=== PATIENT | female | born 1960 | race Caucasian/White ===

== ENCOUNTER 2017-03-14 16:28 | Inpatient (IN) | payer OTHER, BC ==
[~2017-03-14] VITALS: Ht 162.6 cm; Wt 68.5 kg
[~2017-03-14 16:28] MED LIST: DEXAMETHASONE SOD PHOS 4 MG/ML VIAL IV ONE; GLYCOPYRROLATE 1 MG/5 ML SYRINGE IV PUSH ONE; LACTATED RINGER'S 1000 ML INJ 2,000 ML IV ONE; LIDOCAINE HCL 1% PF 5 ML AMPULE OTHER ONE; MORPHINE SULFATE 4 MG/ML INJ IV ONE; NEOSTIGMINE 3 MG/3 ML SYR IV ONE; ONDANSETRON HCL 4 MG/2 ML VIAL IV PUSH ONE; PROPOFOL 200 MG/20 ML AMP IV ONE; ROCURONIUM INJ 50 MG/5 ML SYRINGE IV PUSH ONE; SUCCINYLCHOLINE CHLORIDE 100 MG/5 ML SYRINGE IV PUSH ONE
[2017-03-14] MEDS ORDERED: GENTAMICIN 80 MG PREMIX 100 ML ONE (16:32)
[2017-03-14] MEDS ORDERED: MORPHINE SULFATE 8 MG/ML INJ ONE (16:32)
[2017-03-14] MEDS ORDERED: DIPHTH/TETANUS/ACEL PERTUSSIS (BOOSTER) 0.5 ML VIAL/PFS IM ONE (16:32)
[2017-03-14] MEDS ORDERED: ONDANSETRON HCL 4 MG/2 ML VIAL ONE ×2 (16:32→17:06)
[2017-03-14 16:43] VITALS: O2SAT 100
[2017-03-14 16:51] LABS: AUTOMATED NEUTROPHIL # 11.3 TH/MM3 (1.8-7.7); BASOPHIL # 0.1 TH/MM3 (0-0.2); BASOPHIL % 0.5 % (0.0-2.0); EOSINOPHIL # 0.3 TH/MM3 (0-0.4); EOSINOPHIL % 1.5 % (0.0-4.0); HEMATOCRIT 40.3 % (35.0-46.0); HEMO FLAGS DIFF FINAL; I-STAT POTASSIUM 3.2 MMOL/L (3.5-4.9); LYMPHOCYTE # 4.2 TH/MM3 (1.0-4.8); MEAN CELL VOLUME 90.4 FL (80.0-100.0); MEAN CORPUSCULAR HGB CONC 33.2 % (32.0-36.0); MONO % 5.6 % (0.0-8.0); NEUT % 67.4 % (16.0-70.0); PLATELET COUNT 370 TH/MM3 (150-450); RED BLOOD COUNT 4.45 MIL/MM3 (4.00-5.30); RED CELL DISTRIBUTION WIDTH 12.9 % (11.6-17.2); WHITE BLOOD COUNT 16.7 TH/MM3 (4.0-11.0)
[2017-03-14] MEDS ORDERED: diphenhydrAMINE HCL 50 MG/ML VIAL ONE (16:53)
[2017-03-14] MEDS ORDERED: methylPREDNISolone SOD SUCC 125 MG/2 ML VIAL ONE (16:54)
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
[2017-03-14 17:03] LABS: APTT (PATIENT) 20.8 SEC (24.3-30.1); INTERNATIONAL NORMALIZED RATIO 0.9 RATIO; PROTHROMBIN TIME - PATIENT 10.4 SEC (9.8-11.6)
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
[2017-03-14 17:13] VITALS: BP 155/89; PULSE 85; RESP 20; O2SAT 100
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
--- NOTE | 2017-03-14 17:14 | RADRPT ---
EXAM DATE/TIME: 03/14/2017 16:20 [facility] COMPARISON: No previous studies available for comparison. INDICATIONS : [facility] alert. [facility] MEDICAL HISTORY : None. SURGICAL HISTORY : None. ENCOUNTER: Initial ACUITY: 1 day PAIN SCORE: Non-responsive. LOCATION: Right Ankle FINDINGS: Two view examination was performed of the right ankle. There is a nondisplaced fracture involving the lateral malleolus. There is a fracture involving the medial malleolus. There is irregularity involvi ng the medial portion of the talus bone. There is good alignment at the mortise joint. There is a fra cture involving the base of the fifth metatarsal. No joint dislocation is seen. There is diffuse soft tissue swelling. CONCLUSION: 1. Fractures involving the lateral medial malleoli. 2. Possible fracture involving the medial aspect of the talus 3. Fracture involving the base of the metatarsal 4. Diffuse soft tissue swelling Fredrick Wall MD on March 14, 2017 at 17:11 Board Certified Radiologist. This report was verified electronically.
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
[2017-03-14] MEDS ORDERED: LIDOCAINE 1%/EPINEPHrine 1:100,000 SOLN 20 ML VIAL INFIL ONE (17:30)
[2017-03-14] MEDS ORDERED: SODIUM CHLOR 0.9% 1000 ML INJ 1,000 ML IV SCH (17:33)
[2017-03-14] MEDS ORDERED: PANTOPRAZOLE SODIUM 40 MG VIAL IVP SCH (17:45)
[2017-03-14] MEDS ORDERED: SODIUM CHLORIDE 0.9% FLUSH 10 ML FLUSH IV FLUSH PRN ×2 (17:45→20:45)
[2017-03-14] MEDS ORDERED: ACETAMINOPHEN/HYDROcodone 325 MG/5 MG TAB PO PRN ×2 (17:45)
[2017-03-14] MEDS ORDERED: ONDANSETRON HCL 4 MG/2 ML VIAL IV PUSH PRN (17:45)
[2017-03-14] MEDS ORDERED: MORPHINE SULFATE 4 MG/ML INJ IV PUSH PRN (17:45)
[2017-03-14] MEDS ORDERED: ENALAPRILAT 1.25 MG/ML VIAL IV PUSH PRN (17:45)
[2017-03-14] MEDS ORDERED: MAGNESIUM HYDROXIDE SUSP 30 ML CUP PO PRN ×2 (17:45→20:45)
[2017-03-14] MEDS ORDERED: LIDOCAINE HCL 1% 50 ML VIAL INFIL ONE (17:45)
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
[2017-03-14] MEDS ORDERED: GENTAMICIN INJ 80 MG in SODIUM CHLORIDE 0.9% INJ 100 ML IV ONE (18:15)
[2017-03-14] MEDS ORDERED: ceFAZolin 2 GM PREMIX 50 ML IV SCH (18:15)
[2017-03-14 18:22] VITALS: BP 167/94
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
[2017-03-14] MEDS ORDERED: GENTAMICIN SULFATE 80 MG/2 ML VIAL ONE (18:31)
[2017-03-14] MEDS ORDERED: ceFAZolin INJ 1,000 MG VIAL ONE (18:31)
[2017-03-14] MEDS ORDERED: GENTAMICIN 80 MG PREMIX 100 ML IV PRN (18:45)
[2017-03-14] MEDS ORDERED: ACETAMINOPHEN 1000 MG/100 ML 100 ML IV ONE (19:15)
--- NOTE | 2017-03-14 20:36 | PD.OP ---
cc: Andrez Plascencia MD Operative Report Date of Surgery: Mar 14, 2017 Preoperative Diagnosis: (1) Open femur fracture, right (2) Open wound of forearm Postoperative Diagnosis: (1) Open displaced supracondylar fracture with intracondylar extension of lower end of left femur, type III (2) Open wound of forearm Procedure: 1.Irrigation and debridement right open distal femur fracture with external fixation 2 Irrigation and debridement with partial closure right forearm laceration Implants: Synthes Anesthesia: Gen. Surgeon: Andrez Plascencia Ink Technician(s): Paty Dominguez PA-C ([place]) The surgical procedure was assisted by my physician's research assistant. Her presence was necessary throughout the case for manipulation and positioning of the surgical extremity. My PA was assisting me throughout the duration of this procedure. The skill set of the physician research assistant was medically necessary to complete this procedure. During the surgical case the operating room surgical technologist was working at the back table and the physician research assistant was directly assisting me. Operation and Findings: The patient was taken to the operative suite and after undergoing an adequate level of general anesthesia was kept supine on the operative table. Preoperative antibiotics consisted of Ancef 2 g IV and gentamicin 80 mg IV. The right lower extremity splint was removed. The patient had a 2 cm laceration over the medial aspect of the distal thigh with venous bleeding. There was an obvious instability and deformity. There were abrasions over the anterior aspect of the lower leg and moderate swelling of the foot and ankle. The right upper extremity dressing was removed and there was a large full- thickness skin flap over the radial aspect of the forearm. The right upper and lower extremity is were then prepped and draped in usual sterile fashion with Hibiclens. Attention was first focused on the femur fracture. The open wound was extended proximally and distally. There was violation the muscular fascia and the VMO. It easily communicate with the fracture site. The wound was thoroughly irrigated with antibiotic irrigant and pulse lavage. Utilizing fluoroscopic guidance 2 percutaneous incisions were made over the anterior aspect of the mid thigh. Drill holes were made and Schanz pins placed in a parallel fashion. 2 additional pins were placed into the tibia. The external fixation frame was assembled. The fracture was held somewhat reduced with traction. The bolts were then tightened. The position was checked in both the AP and lateral planes with the C-arm. The wound was again thoroughly irrigated with pulse lavage and loosely closed with 2-0 nylon. Sterile dressings were applied. Patient was placed into a lower extremity splint for immobilization of her foot and ankle fractures. Attention was then focused on the forearm which was thoroughly irrigated with pulse lavage. Dr. Bermudez was present for evaluation as plastic surgery would be consulted. He recommended loose coverage of the exposed area but no need for VAC application. This was completed with 2-0 nylon. Sterile dressings were then applied. The patient was awakened, transferred to hospital bed and taken to the recovery room in stable condition. Estimated blood loss: 100 cc Complications: None Andrez Plascencia MD Mar 14, 2017 20:36
[2017-03-14] MEDS ORDERED: ACETAMINOPHEN 325 MG TAB PO PRN (20:45)
[2017-03-14] MEDS ORDERED: NALOXONE HCL 0.4 MG/ML AMP IV PUSH PRN (20:45)
[2017-03-14] MEDS ORDERED: MISCELLANEOUS PHARMACY INFORMATION XX ONE (20:45)
[2017-03-14] MEDS ORDERED: oxyCODONE/ACETAMINOPHEN 5 MG/325 MG TAB PO PRN (20:45)
[2017-03-14] MEDS ORDERED: LACTULOSE SYRUP 20 GM/30 ML CUP PO PRN (20:45)
[2017-03-14] MEDS ORDERED: diphenhydrAMINE HCL 25 MG CAP PO PRN (20:45)
[2017-03-14] MEDS ORDERED: MISCELLANEOUS NURSING INFORMATION XX PRN (20:45)
[2017-03-14] MEDS ORDERED: MORPHINE SULFATE 30 MG/30 ML PCA IV SCH (20:45)
[2017-03-14] MEDS ORDERED: SENNOSIDES 8.6 MG TAB PO PRN (20:45)
[2017-03-14] MEDS ORDERED: Post-op Orders (for Pharmacy) MISC XX ONE (20:45)
[2017-03-14] MEDS ORDERED: BISACODYL 10 MG SUPP RECTAL PRN (20:45)
[2017-03-14] MEDS ORDERED: DOCUSATE SODIUM 100 MG CAP PO SCH (21:00)
[2017-03-14] MEDS: DEXT 5%-NACL 0.45% 1000 ML INJ 1,000 ML IV SCH ×2 (21:00→22:15)
[2017-03-14] MEDS: SODIUM CHLORIDE 0.9% FLUSH 10 ML FLUSH IV FLUSH SCH (21:00)
[2017-03-14] MEDS ORDERED: DOCUSATE SODIUM 50 MG/SENNA 8.6 MG TAB PO SCH (21:00)
[2017-03-14] MEDS ORDERED: DO NOT ADM ANY ANTICOAGULANT DRUGS PRN (21:10)
[2017-03-14] MEDS ORDERED: *ONDANSETRON 4 MG VIAL PERIprocedural Use ONLY ONE (21:13)
[2017-03-14] MEDS: PCA - TOTAL MG MORPHINE DELIVERED PER SHIFT SCH (22:00)
[2017-03-14 22:10] VITALS: BP 182/97; PULSE 59; RESP 18; TEMP 96.8; O2SAT 100
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
[2017-03-15] VITALS (8 sets, daily range): BP systolic 116–170; BP diastolic 71–96; PULSE 76–90; RESP 16–19; TEMP 97.3–99.3; O2SAT 98–100
[2017-03-15] MEDS: GENTAMICIN 80 MG PREMIX 100 ML IV SCH ×4 (00:15→23:58)
[2017-03-15] MEDS: ceFAZolin 2 GM PREMIX 50 ML IV SCH ×3 (02:26→17:59)
[2017-03-15] MEDS: ONDANSETRON HCL 4 MG/2 ML VIAL IVP PRN ×2 (02:51→12:45)
[2017-03-15 05:36] LABS: AUTOMATED NEUTROPHIL # 6.4 TH/MM3 (1.8-7.7); BASOPHIL % 0.2 % (0.0-2.0); HEMATOCRIT 31.2 % (35.0-46.0); HEMO FLAGS DIFF FINAL; LYMPH % 9.5 % (9.0-44.0); LYMPHOCYTE # 0.8 TH/MM3 (1.0-4.8); MEAN CORPUSCULAR HEMOGLOBIN 30.9 PG (27.0-34.0); MEAN CORPUSCULAR HGB CONC 33.9 % (32.0-36.0); NEUT % 79.3 % (16.0-70.0); PLATELET COUNT 257 TH/MM3 (150-450); RED BLOOD COUNT 3.43 MIL/MM3 (4.00-5.30); WHITE BLOOD COUNT 8.1 TH/MM3 (4.0-11.0)
[2017-03-15] MEDS: PCA - TOTAL MG MORPHINE DELIVERED PER SHIFT SCH ×3 (06:00→21:06)
[2017-03-15 06:34] LABS: BICARBONATE 23.1 MEQ/L (21.0-32.0); CALCIUM-PROTEIN CORRECTED 7.9 MG/DL (8.5-10.1); TOTAL BILIRUBIN ADULT 0.4 MG/DL (0.2-1.0)
[2017-03-15] MEDS: FAMOTIDINE 20 MG TAB PO SCH ×2 (08:37→19:54)
[2017-03-15] MEDS: MULTIVITAMINS/MINERALS THERAPEUTIC TAB PO SCH (08:37)
[2017-03-15] MEDS: DOCUSATE SODIUM 50 MG/SENNA 8.6 MG TAB PO SCH ×2 (08:38→19:54)
[2017-03-15] MEDS: SODIUM CHLORIDE 0.9% FLUSH 10 ML FLUSH IV FLUSH SCH ×2 (08:40→19:55)
[2017-03-15] MEDS: POLYETHYLENE GLYCOL 17 GM PKG PO SCH (08:40)
[2017-03-15] MEDS: BACITRACIN TOP OINT 15 GM TUBE TOPICAL SCH ×2 (08:41→19:55)
--- NOTE | 2017-03-15 11:38 | PD.ORT.PN ---
Subjective Post Op Day #: 1 Pain Scale: 4 Subjective Remarks The patient is awake and alert and answers questions appropriate really. Family is at the bedside. Her pain is well-controlled. She has no other specific complaint. Objective Vitals Vital Signs Date Time Temp Pulse Resp B/P (MAP) Pulse Ox O2 Delivery O2 Flow Rate FiO2 03/15/17 10:54 99 21 03/15/17 08:00 98.3 81 18 142/81 (101) 99 03/15/17 06:00 17 03/15/17 04:00 97.3 76 16 116/71 (86) 100 03/15/17 00:00 97.8 76 18 153/85 (107) 100 03/14/17 23:25 16 03/14/17 22:22 95 Nasal Cannula 2.00 03/14/17 22:10 96.8 59 18 182/97 (125) 100 03/14/17 21:45 98.1 88 14 149/87 (107) 100 Nasal Cannula 2 03/14/17 21:30 70 18 184/86 (118) 100 Nasal Cannula 2 03/14/17 21:15 72 18 169/87 (114) 100 Nasal Cannula 2 03/14/17 21:10 97.6 78 20 147/84 (105) 99 Nasal Cannula 2 03/14/17 18:22 76 17 167/94 (118) 98 03/14/17 17:13 85 20 155/89 (111) 100 Nasal Cannula 2.00 03/14/17 16:43 100 Nasal Cannula 2.00 03/14/17 16:43 100 2.00 I/O 03/14/17 03/14/17 03/14/17 03/15/17 03/15/17 03/15/17 07:00 15:00 23:00 07:00 15:00 23:00 Intake Total 2400 ml 890 ml Output Total 950 ml 1050 ml Balance 1450 ml -160 ml Intake Oral 240 ml IV Total 200 ml 650 ml Other 2200 ml Output Urine Total 900 ml 1050 ml Estimated Blood Loss 50 ml # Bowel Movements 0 Result Diagram: 03/15/17 0458 03/15/17 0458 Other Results Laboratory Tests Test 03/14/17 16:29 Prothromb Time International Ratio 0.9 RATIO Prothrombin Time 10.4 SEC (9.8-11.6) Imaging Last 48 hours Impressions Pelvis X-Ray 03/14/17 1630 Signed Impressions: Service Date/Time: Tuesday, March 14, 2017 16:20 - CONCLUSION: No bony fracture or joint dislocation. Fredrick Wall MD Head CT 03/14/17 1630 Signed Impressions: Service Date/Time: Tuesday, March 14, 2017 16:40 - CONCLUSION: Normal examination for a patient of this age. Fredrick Wall MD Chest X-Ray 03/14/17 1630 Signed Impressions: Service Date/Time: Tuesday, March 14, 2017 16:20 - CONCLUSION: No acute disease. Fredrick Wall MD Chest CT 03/14/17 1630 Signed Impressions: Service Date/Time: Tuesday, March 14, 2017 16:53 - CONCLUSION: Normal examination for a patient of this age. Fredrick Wall MD Cervical Spine CT 03/14/17 1630 Signed Impressions: Service Date/Time: Tuesday, March 14, 2017 16:42 - CONCLUSION: 1. No acute bony fracture. 2. Primary bony degenerative changes, disc degeneration and disc space narrowing from C3-C7. Fredrick Wall MD Abdomen/Pelvis CT 03/14/17 1630 Signed Impressions: Service Date/Time: Tuesday, March 14, 2017 16:49 - CONCLUSION: No acute pathology. Fredrick Wall MD Tibia/Fibula X-Ray 03/14/17 0000 Signed Impressions: Service Date/Time: Tuesday, March 14, 2017 16:20 - CONCLUSION: Fracture involving the base the fifth metatarsal. Fredrick Wall MD Radius/Ulna X-Ray 03/14/17 0000 Signed Impressions: Service Date/Time: Tuesday, March 14, 2017 16:20 - CONCLUSION: Fracture involving the base of the fifth metacarpal. Fredrick Wall MD Hand X-Ray 03/14/17 0000 Signed Impressions: Service Date/Time: Tuesday, March 14, 2017 17:30 - CONCLUSION: Oblique fracture through the base of the fifth metacarpal. Fredrick Wall MD Hand X-Ray 03/14/17 0000 Signed Impressions: Service Date/Time: Tuesday, March 14, 2017 16:20 - CONCLUSION: Oblique fracture through the base of the fifth metacarpal. Fredrick Wall MD Foot X-Ray 03/14/17 0000 Signed Impressions: Service Date/Time: Tuesday, March 14, 2017 21:33 - CONCLUSION: Fracture non-distracted and nondisplaced base of the fifth metatarsal Michael Gunn MD Femur X-Ray 03/14/17 0000 Signed Impressions: Service Date/Time: Tuesday, March 14, 2017 19:58 - CONCLUSION: Status post fixation. Rudi Sood MD Femur X-Ray 03/14/17 0000 Signed Impressions: Service Date/Time: Tuesday, March 14, 2017 16:20 - CONCLUSION: Severely comminuted fracture involving the distal femur. Fredrick Wall MD Ankle X-Ray 03/14/17 0000 Signed Impressions: Service Date/Time: Tuesday, March 14, 2017 16:20 - CONCLUSION: 1. Fractures involving the lateral medial malleoli. 2. Possible fracture involving the medial aspect of the talus 3. Fracture involving the base of the metatarsal 4. Diffuse soft tissue swelling Fredrick Wall MD Last 24 hours Impressions Pelvis X-Ray 03/14/17 1630 Signed Impressions: Service Date/Time: Tuesday, March 14, 2017 16:20 - CONCLUSION: No bony fracture or joint dislocation. Fredrick Wall MD Head CT 03/14/17 1630 Signed Impressions: Service Date/Time: Tuesday, March 14, 2017 16:40 - CONCLUSION: Normal examination for a patient of this age. Fredrick Wall MD Chest X-Ray 03/14/17 163 Signed Impressions: Service Date/Time: Tuesday, March 14, 2017 16:20 - CONCLUSION: No acute disease. Fredrcik Wall MD Chest CT 03/14/17 1630 Signed Impressions: Service Date/Time: Tuesday, March 14, 2017 16:53 - CONCLUSION: Normal examination for a patient of this age. Fredrick Wall MD Cervical Spine CT 03/14/17 1630 Signed Impressions: Service Date/Time: Tuesday, March 14, 2017 16:42 - CONCLUSION: 1. No acute bony fracture. 2. Primary bony degenerative changes, disc degeneration and disc space narrowing from C3-C7. Fredrick Wall MD Abdomen/Pelvis CT 03/14/17 1630 Signed Impressions: Service Date/Time: Tuesday, March 14, 2017 16:49 - CONCLUSION: No acute pathology. Fredrick Wall MD Procedures 1. Irrigation debridement with external fixation open right supracondylar distal femur fracture 03/14/17 2. Irrigation debridement with partial closure right forearm laceration Objective Remarks The right lower extremity dressing is dry and intact. External fixation device intact. She moves her toes freely with good capillary refill and sensation. The right upper extremity splint is dry and intact. She has good capillary refill and sensation. Assessment & Plan Ortho Post Op Day #: 1 Problem List: (1) Open displaced supracondylar fracture with intracondylar extension of lower end of left femur, type III ICD Codes: S72.462C - Displaced supracondylar fracture with intracondylar extension of lower end of left femur, initial encounter for open fracture type IIIA, IIIB, or IIIC Status: Acute Qualifiers: Qualified Codes: S72.462C - Displaced supracondylar fracture with intracondylar extension of lower end of left femur, initial encounter for open fracture type IIIA, IIIB, or IIIC Plan: Continue wound care. Dr. Min to evaluate for further intervention when soft tissue allows. (2) right fifth metatarsal fracture Status: Acute Plan: Splint immobilization (3) Fracture of fifth metacarpal bone of right hand ICD Codes: S62.306A - Unspecified fracture of fifth metacarpal bone, right hand , initial encounter for closed fracture Status: Acute Plan: Hand surgery has been consulted and therefore will defer. (4) Bimalleolar fracture of right ankle ICD Codes: S82.841A - Displaced bimalleolar fracture of right lower leg, initial encounter for closed fracture Status: Acute Qualifiers: Plan: Splint immobilization (5) Open wound of forearm ICD Codes: S51.809A - Unspecified open wound of unspecified forearm, initial encounter Status: Acute Qualifiers: Plan: Plastic surgery will be consulted per Dr. Melton and therefore will defer Andrez Plascencia MD Mar 15, 2017 11:38
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
[2017-03-15] MEDS ORDERED: ENOXAPARIN SODIUM 40 MG/0.4 ML SYRINGE SQ SCH (20:00)
[2017-03-15] MEDS: ENOXAPARIN SODIUM 30 MG/0.3 ML SYRINGE SQ SCH (20:58)
[2017-03-15] MEDS ORDERED: LEVO112T2 PO (21:14)
[2017-03-16] MEDS: ceFAZolin 2 GM PREMIX 50 ML IV SCH ×3 (03:08→18:42)
[2017-03-16 04:00] VITALS: BP 155/79; PULSE 101; RESP 17; TEMP 99.1; O2SAT 98
[2017-03-16] MEDS: PCA - TOTAL MG MORPHINE DELIVERED PER SHIFT SCH (05:41)
[2017-03-16] MEDS: GENTAMICIN 80 MG PREMIX 100 ML IV SCH ×2 (08:48→15:33)
[2017-03-16] MEDS: KETOROLAC TROMETHAMINE 30 MG/ML (IVP) VIAL IV PUSH SCH ×3 (08:49→21:33)
[2017-03-16] MEDS: SODIUM CHLORIDE 0.9% FLUSH 10 ML FLUSH IV FLUSH SCH ×2 (08:49→21:33)
[2017-03-16] MEDS: POLYETHYLENE GLYCOL 17 GM PKG PO SCH (08:49)
[2017-03-16] MEDS: FAMOTIDINE 20 MG TAB PO SCH ×2 (08:49→21:33)
[2017-03-16] MEDS: DOCUSATE SODIUM 50 MG/SENNA 8.6 MG TAB PO SCH ×2 (08:49→21:33)
[2017-03-16] MEDS: MULTIVITAMINS/MINERALS THERAPEUTIC TAB PO SCH (08:49)
[2017-03-16] MEDS: BACITRACIN TOP OINT 15 GM TUBE TOPICAL SCH ×2 (08:50→21:34)
[2017-03-16] MEDS: ENOXAPARIN SODIUM 30 MG/0.3 ML SYRINGE SQ SCH ×2 (08:50→21:34)
[2017-03-16] MEDS: LEVOTHYROXINE SODIUM 112 MCG TAB PO SCH (08:50)
[2017-03-16 13:56] LABS: BASOPHIL # 0.1 TH/MM3 (0-0.2); BASOPHIL % 0.8 % (0.0-2.0); EOSINOPHIL % 0.5 % (0.0-4.0); HEMO FLAGS DIFF FINAL; LYMPH % 26.8 % (9.0-44.0); LYMPHOCYTE # 2.1 TH/MM3 (1.0-4.8); MEAN CELL VOLUME 90.5 FL (80.0-100.0); MEAN CORPUSCULAR HEMOGLOBIN 31.1 PG (27.0-34.0); MEAN CORPUSCULAR HGB CONC 34.4 % (32.0-36.0); MONO % 8.7 % (0.0-8.0); NEUT % 63.2 % (16.0-70.0); PLATELET COUNT 236 TH/MM3 (150-450); RED BLOOD COUNT 3.09 MIL/MM3 (4.00-5.30); RED CELL DISTRIBUTION WIDTH 12.7 % (11.6-17.2); WHITE BLOOD COUNT 7.9 TH/MM3 (4.0-11.0)
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
[2017-03-16 14:19] LABS: BICARBONATE 25.2 MEQ/L (21.0-32.0); POTASSIUM 3.5 MEQ/L (3.5-5.1)
--- NOTE | 2017-03-16 14:33 | PD.ORT.PN ---
Subjective Post Op Day #: 2 Pain Scale: 3 Subjective Remarks The patient is awake and alert and answers questions appropriate really. She is out of bed to a chair. Family is at the bedside. Her pain is well- controlled. She has no other specific complaint. Objective Vitals Vital Signs Date Time Temp Pulse Resp B/P (MAP) Pulse Ox O2 Delivery O2 Flow Rate FiO2 03/16/17 05:41 16 03/16/17 04:00 99.1 101 17 155/79 (104) 98 03/15/17 23:35 99.2 89 17 158/74 (102) 98 03/15/17 21:06 16 03/15/17 19:50 99.3 90 17 157/81 (106) 98 03/15/17 16:00 98.1 79 19 170/83 (112) 100 I/O 03/15/17 03/15/17 03/15/17 03/16/17 03/16/17 03/16/17 07:00 15:00 23:00 07:00 15:00 23:00 Intake Total 890 ml 1440 ml 290 ml 340 ml Output Total 1050 ml Balance -160 ml 1440 ml 290 ml 340 ml Intake Oral 240 ml 1440 ml 240 ml 240 ml IV Total 650 ml 50 ml 100 ml Output Urine Total 1050 ml # Voids 3 1 2 # Bowel Movements 0 0 0 Result Diagram: 03/16/17 1308 03/16/17 1308 Imaging Last 48 hours Impressions Pelvis X-Ray 03/14/171629 Signed Impressions: Service Date/Time: Tuesday, March 14, 2017 16:20 - CONCLUSION: No bony fracture or joint dislocation. Fredrick Wall MD Head CT 03/14/17 163 Signed Impressions: Service Date/Time: Tuesday, March 14, 2017 16:40 - CONCLUSION: Normal examination for a patient of this age. Fredrick Wall MD Chest X-Ray 03/14/171629 Signed Impressions: Service Date/Time: Tuesday, March 14, 2017 16:20 - CONCLUSION: No acute disease. Fredrick Wall MD Chest CT 03/14/171629 Signed Impressions: Service Date/Time: Tuesday, March 14, 2017 16:53 - CONCLUSION: Normal examination for a patient of this age. Fredrick Wall MD Cervical Spine CT 03/14/17 1630 Signed Impressions: Service Date/Time: Tuesday, March 14, 2017 16:42 - CONCLUSION: 1. No acute bony fracture. 2. Primary bony degenerative changes, disc degeneration and disc space narrowing from C3-C7. Fredrick Wall MD Abdomen/Pelvis CT 03/14/17 1630 Signed Impressions: Service Date/Time: Tuesday, March 14, 2017 16:49 - CONCLUSION: No acute pathology. Fredrick Wall MD Tibia/Fibula X-Ray 03/14/17 0000 Signed Impressions: Service Date/Time: Tuesday, March 14, 2017 16:20 - CONCLUSION: Fracture involving the base the fifth metatarsal. Fredrick Wall MD Radius/Ulna X-Ray 03/14/17 0000 Signed Impressions: Service Date/Time: Tuesday, March 14, 2017 16:20 - CONCLUSION: Fracture involving the base of the fifth metacarpal. Fredrick Wall MD Hand X-Ray 03/14/17 0000 Signed Impressions: Service Date/Time: Tuesday, March 14, 2017 17:30 - CONCLUSION: Oblique fracture through the base of the fifth metacarpal. Fredrick Wall MD Hand X-Ray 03/14/17 0000 Signed Impressions: Service Date/Time: Tuesday, March 14, 2017 16:20 - CONCLUSION: Oblique fracture through the base of the fifth metacarpal. Fredrick Wall MD Foot X-Ray 03/14/17 0000 Signed Impressions: Service Date/Time: Tuesday, March 14, 2017 21:33 - CONCLUSION: Fracture non-distracted and nondisplaced base of the fifth metatarsal Michael Gunn MD Femur X-Ray 03/14/17 0000 Signed Impressions: Service Date/Time: Tuesday, March 14, 2017 19:58 - CONCLUSION: Status post fixation. Rudi Sood MD Femur X-Ray 03/14/17 0000 Signed Impressions: Service Date/Time: Tuesday, March 14, 2017 16:20 - CONCLUSION: Severely comminuted fracture involving the distal femur. Fredrick Wall MD Ankle X-Ray 03/14/17 0000 Signed Impressions: Service Date/Time: Tuesday, March 14, 2017 16:20 - CONCLUSION: 1. Fractures involving the lateral medial malleoli. 2. Possible fracture involving the medial aspect of the talus 3. Fracture involving the base of the metatarsal 4. Diffuse soft tissue swelling Fredrick Wall MD Last 24 hours Impressions Pelvis X-Ray 03/14/17 1630 Signed Impressions: Service Date/Time: Tuesday, March 14, 2017 16:20 - CONCLUSION: No bony fracture or joint dislocation. Fredrick Wall MD Head CT 03/14/17 1630 Signed Impressions: Service Date/Time: Tuesday, March 14, 2017 16:40 - CONCLUSION: Normal examination for a patient of this age. Fredrick Wall MD Chest X-Ray 03/14/17 1630 Signed Impressions: Service Date/Time: Tuesday, March 14, 2017 16:20 - CONCLUSION: No acute disease. Fredrick Wall MD Chest CT 03/14/17 1630 Signed Impressions: Service Date/Time: Tuesday, March 14, 2017 16:53 - CONCLUSION: Normal examination for a patient of this age. Fredrick Wall MD Cervical Spine CT 03/14/17 1630 Signed Impressions: Service Date/Time: Tuesday, March 14, 2017 16:42 - CONCLUSION: 1. No acute bony fracture. 2. Primary bony degenerative changes, disc degeneration and disc space narrowing from C3-C7. Fredrick Wall MD Abdomen/Pelvis CT 03/14/17 1630 Signed Impressions: Service Date/Time: Tuesday, March 14, 2017 16:49 - CONCLUSION: No acute pathology. Fredrick Wall MD Procedures 1. Irrigation debridement with external fixation open right supracondylar distal femur fracture 03/14/17 2. Irrigation debridement with partial closure right forearm laceration Objective Remarks The right lower extremity dressing is dry and intact. External fixation device intact. She moves her toes freely with good capillary refill and sensation. The right upper extremity splint is dry and intact. She has good capillary refill and sensation. Assessment & Plan Ortho Post Op Day #: 2 Problem List: (1) Open displaced supracondylar fracture with intracondylar extension of lower end of left femur, type III ICD Codes: S72.462C - Displaced supracondylar fracture with intracondylar extension of lower end of left femur, initial encounter for open fracture type IIIA, IIIB, or IIIC Status: Acute Qualifiers: Qualified Codes: S72.462C - Displaced supracondylar fracture with intracondylar extension of lower end of left femur, initial encounter for open fracture type IIIA, IIIB, or IIIC Plan: Continue wound care. Dr. Min to evaluate for further intervention when soft tissue allows. Lovenox for DVT prophylaxis. Begin dressing changes and pin site care. NPO after midnight. (2) right fifth metatarsal fracture Status: Acute Plan: Splint immobilization (3) Fracture of fifth metacarpal bone of right hand ICD Codes: S62.306A - Unspecified fracture of fifth metacarpal bone, right hand , initial encounter for closed fracture Status: Acute Plan: Hand surgery has been consulted and therefore will defer. (4) Bimalleolar fracture of right ankle ICD Codes: S82.841A - Displaced bimalleolar fracture of right lower leg, initial encounter for closed fracture Status: Acute Qualifiers: Plan: Splint immobilization (5) Open wound of forearm ICD Codes: S51.809A - Unspecified open wound of unspecified forearm, initial encounter Status: Acute Qualifiers: Plan: Plastic surgery will be consulted per Dr. Melton and therefore will defer Andrez Plascencia MD Mar 16, 2017 14:33
[2017-03-16 16:00] VITALS: BP 122/72; PULSE 111; RESP 18; TEMP 99.3; O2SAT 98
[2017-03-16 20:20] VITALS: BP 126/69; PULSE 105; RESP 18; TEMP 99.4; O2SAT 98
[2017-03-16] MEDS ORDERED: MORPHINE SULFATE 8 MG/ML INJ IV PUSH PRN (22:00)
--- NOTE | 2017-03-16 22:57 | RADRPT ---
EXAM DATE/TIME: 03/16/2017 21:53 [facility] COMPARISON: No previous studies available for comparison. INDICATIONS : Distal femur fracture. RADIATION DOSE: 7.29 CTDIvol (mGy) MEDICAL HISTORY : Cardiovascular disease. SURGICAL HISTORY : None. ENCOUNTER: Initial ACUITY: 1 day PAIN SCALE: 10/10 LOCATION: Right knee TECHNIQUE: Volumetric scanning of the knee was performed. Using automated exposure control and adjustment of th e mA and/or kV according to patient size, radiation dose was kept as low as reasonably achievable to obtain optimal diagnostic quality images. DICOM format image data is available electronically for re view and comparison. FINDINGS: There is a severely comminuted fracture of the distal shaft of the femur with marked displacement of multiple fracture fragments. Fracture lines extend intra-articular into the medial lateral femoral co ndyles. There is also an avulsion fracture through the lateral aspect of the lateral tibial plateau. Knee joint effusion with hemorrhage present. There is some air in the soft tissues and air within the right knee joint. There is extensive soft tissue swelling. CONCLUSION: 1. Severely comminuted fracture of the distal femur with intra-articular extension as above. There is air in the soft tissues of the distal thigh and also air within the knee joint. Marked soft tissue s welling with hemorrhagic knee joint effusion. Raza Robles MD on March 16, 2017 at 22:53 Board Certified Radiologist. This report was verified electronically.
[2017-03-16 23:35] VITALS: BP 117/66; PULSE 92; RESP 16; TEMP 97.5; O2SAT 97
[2017-03-17] MEDS: GENTAMICIN 80 MG PREMIX 100 ML IV SCH ×3 (00:11→15:22)
[2017-03-17] MEDS ORDERED: SODIUM CHLORID 0.9% 500 ML IV PRN (00:30)
[2017-03-17] MEDS ORDERED: CHLORHEXIDINE GLUCONATE 2 % 1 PACK (2 CLOTHS) TOPICAL PRN (00:30)
[2017-03-17] MEDS ORDERED: INSULIN HUMAN REGULAR 1,000 UNITS/10 ML VIAL SQ PRN (00:30)
[2017-03-17] MEDS ORDERED: LACTATED RINGER'S 1000 ML IV PRN (00:30)
[2017-03-17] MEDS: KETOROLAC TROMETHAMINE 30 MG/ML (IVP) VIAL IV PUSH SCH ×4 (03:07→21:34)
[2017-03-17] MEDS: ceFAZolin 2 GM PREMIX 50 ML IV SCH ×3 (03:07→19:00)
[2017-03-17 03:15] VITALS: BP 118/72; PULSE 94; RESP 16; TEMP 98.2; O2SAT 97
[2017-03-17] MEDS: LEVOTHYROXINE SODIUM 112 MCG TAB PO SCH (05:17)
[2017-03-17 07:04] LABS: HEMATOCRIT 24.2 % (35.0-46.0); REVIEW FLAG FINAL
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
[2017-03-17 08:00] VITALS: BP 139/89; PULSE 99; RESP 19; TEMP 98.3; O2SAT 99
[2017-03-17] MEDS: MULTIVITAMINS/MINERALS THERAPEUTIC TAB PO SCH (08:14)
[2017-03-17] MEDS: ENOXAPARIN SODIUM 30 MG/0.3 ML SYRINGE SQ SCH (08:14)
[2017-03-17] MEDS: POLYETHYLENE GLYCOL 17 GM PKG PO SCH (08:14)
[2017-03-17] MEDS: DOCUSATE SODIUM 50 MG/SENNA 8.6 MG TAB PO SCH ×2 (08:15→21:33)
[2017-03-17] MEDS: SODIUM CHLORIDE 0.9% FLUSH 10 ML FLUSH IV FLUSH SCH ×2 (08:16→21:36)
[2017-03-17] MEDS: FAMOTIDINE 20 MG TAB PO SCH ×2 (08:16→21:33)
[2017-03-17] MEDS: BACITRACIN TOP OINT 15 GM TUBE TOPICAL SCH ×2 (08:16→21:38)
--- NOTE | 2017-03-17 10:45 | EKG ---
Date Performed: 03/17/2017 Time Performed: 01:34:16 PTAGE: 56 years EKG: Sinus rhythm Short MO interval Borderline ECG NO PREVIOUS TRACING DOCTOR: Mukund Manzo Interpretating Date/Time 03/17/2017 10:39:35
[2017-03-17 12:00] VITALS: BP 104/83; PULSE 101; RESP 19; TEMP 98; O2SAT 100
[2017-03-17] MEDS: oxyCODONE/ACETAMINOPHEN 5 MG/325 MG TAB PO PRN ×2 (12:50→21:17)
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
[2017-03-17] MEDS ORDERED: BISACODYL 10 MG SUPP RECTAL ONE (14:15)
[2017-03-17 16:00] VITALS: BP 113/68; PULSE 90; RESP 18; TEMP 96.1; O2SAT 100
[2017-03-17 20:00] VITALS: BP 139/69; PULSE 97; RESP 17; TEMP 97.7; O2SAT 100
[2017-03-18] VITALS (11 sets, daily range): BP systolic 97–148; BP diastolic 58–97; PULSE 67–94; RESP 12–18; TEMP 96.7–98.2; O2SAT 97–100
[2017-03-18] MEDS: GENTAMICIN 80 MG PREMIX 100 ML IV SCH ×3 (01:00→17:06)
[2017-03-18] MEDS: KETOROLAC TROMETHAMINE 30 MG/ML (IVP) VIAL IV PUSH SCH ×4 (01:00→20:10)
[2017-03-18] MEDS: ceFAZolin 2 GM PREMIX 50 ML IV SCH ×4 (02:35→17:06)
[2017-03-18] MEDS: LEVOTHYROXINE SODIUM 112 MCG TAB PO SCH (05:16)
[2017-03-18] MEDS: oxyCODONE/ACETAMINOPHEN 5 MG/325 MG TAB PO PRN (05:35)
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
[2017-03-18] MEDS ORDERED: HYDR-3583 PO (07:23)
[2017-03-18] MEDS ORDERED: XARE10TA PO (07:23)
[2017-03-18] MEDS: DOCUSATE SODIUM 50 MG/SENNA 8.6 MG TAB PO SCH ×2 (08:31→20:09)
[2017-03-18] MEDS: POLYETHYLENE GLYCOL 17 GM PKG PO SCH (08:31)
[2017-03-18] MEDS: FAMOTIDINE 20 MG TAB PO SCH ×2 (08:31→20:09)
[2017-03-18] MEDS: MULTIVITAMINS/MINERALS THERAPEUTIC TAB PO SCH (08:32)
[2017-03-18] MEDS: BACITRACIN TOP OINT 15 GM TUBE TOPICAL SCH ×2 (08:32→20:15)
[2017-03-18] MEDS: SODIUM CHLORIDE 0.9% FLUSH 10 ML FLUSH IV FLUSH SCH ×2 (09:00→20:10)
[2017-03-18 09:17] LABS: AUTOMATED NEUTROPHIL # 3.9 TH/MM3 (1.8-7.7); BASOPHIL % 0.7 % (0.0-2.0); EOSINOPHIL # 0.4 TH/MM3 (0-0.4); EOSINOPHIL % 5.6 % (0.0-4.0); HEMATOCRIT 23.1 % (35.0-46.0); HEMO FLAGS DIFF FINAL; LYMPH % 23.3 % (9.0-44.0); LYMPHOCYTE # 1.5 TH/MM3 (1.0-4.8); MEAN CELL VOLUME 91.7 FL (80.0-100.0); MEAN CORPUSCULAR HGB CONC 33.8 % (32.0-36.0); MONO % 9.1 % (0.0-8.0); NEUT % 61.3 % (16.0-70.0); PLATELET COUNT 223 TH/MM3 (150-450); RED BLOOD COUNT 2.52 MIL/MM3 (4.00-5.30); RED CELL DISTRIBUTION WIDTH 12.2 % (11.6-17.2); WHITE BLOOD COUNT 6.4 TH/MM3 (4.0-11.0)
[2017-03-18] MEDS ORDERED: TRANEXAMIC ACID INJ 1,080 MG in SODIUM CHLORIDE 0.9% INJ 100 ML IV SCH (10:00)
[2017-03-18] MEDS ORDERED: GENTAMICIN SULFATE 80 MG/2 ML VIAL ONE (10:00)
[2017-03-18] MEDS ORDERED: ACETAMINOPHEN 1000 MG/100 ML 100 ML IV ONE (10:16)
[2017-03-18 10:21] LABS: ALT (GPT) 21 U/L (10-53); ANION GAP 7 MEQ/L (5-15); AST (GOT) 33 U/L (15-37); BICARBONATE 25.7 MEQ/L (21.0-32.0); BLOOD UREA NITROGEN 8 MG/DL (7-18); CHLORIDE 108 MEQ/L (98-107); GLOMERULAR FILTRATION RATE 115 ML/MIN (>89); POTASSIUM 3.9 MEQ/L (3.5-5.1); SODIUM (NA) 141 MEQ/L (136-145)
[2017-03-18] MEDS ORDERED: METOPROLOL TARTRATE 25 MG TAB PO PRN (10:30)
[2017-03-18] MEDS ORDERED: LACTATED RINGER'S 1000 ML IV PRN (10:30)
[2017-03-18] MEDS ORDERED: SODIUM CHLORID 0.9% 500 ML IV PRN (10:30)
[2017-03-18] MEDS ORDERED: CHLORHEXIDINE GLUCONATE 2 % 1 PACK (2 CLOTHS) TOPICAL PRN (10:30)
[2017-03-18] MEDS ORDERED: INSULIN HUMAN REGULAR 1,000 UNITS/10 ML VIAL SQ PRN (10:30)
[2017-03-18 10:43] LABS: ALKALINE PHOSPHATASE 54 U/L (45-117); TOTAL BILIRUBIN ADULT 0.5 MG/DL (0.2-1.0)
[2017-03-18] MEDS ORDERED: VANCOMYCIN HCL 1000 MG VIAL ONE (11:06)
[2017-03-18] MEDS ORDERED: MORPHINE SULFATE 4 MG/ML INJ IV PUSH PRN (12:30)
[2017-03-18] MEDS ORDERED: SODIUM CHLORIDE 0.9% FLUSH 5 ML FLUSH IVF PRN (12:30)
[2017-03-18] MEDS ORDERED: Post-op Orders (for Pharmacy) MISC XX ONE (12:30)
[2017-03-18] MEDS ORDERED: NALOXONE HCL 0.4 MG/ML AMP IV PUSH PRN (12:30)
[2017-03-18] MEDS ORDERED: MISCELLANEOUS NURSING INFORMATION XX PRN (12:30)
--- NOTE | 2017-03-18 12:32 | PD.OP ---
cc: Bari Fox MD Operative Report Date of Surgery: Mar 18, 2017 Preoperative Diagnosis: Comminuted displaced right distal femur intra-articular fracture Postoperative Diagnosis: Procedure: Removal of external fixation, irrigation debridement of open femur fracture, open reduction internal fixation of intra-articular supracondylar femur fracture , placement of antibiotic beads. Surgeon: Bari Fox Cut Out Stitcher(s): RONALD Vidal PA-C The surgical procedure was assisted by my physician assistant professor of archaeology. My P.A. presence was necessary throughout this case for the manipulation and positioning of the surgical extremity. My P.A. was assisting me throughout the duration of this procedure. The skill set of a physician assistant professor of archaeology was medically necessary to complete this procedure. During the surgical case the surgical clinical reviewer was working at the back table and the physician assistant professor of archaeology was directly assisting me. Operation and Findings: Informed consent was obtained, operative site was marked. Patient was brought to the OR, placed on OR table, and given IV sedation with GETA. IV antibiotics were administered and timeout procedure was performed. The operative leg was prepped with alcohol, followed with Hibiclens, draped in usual sterile fashion. A timeout procedure was performed. Procedure began with removal of external fixator. Clamps were loosened. Clamps and bars were now removed. The pins were left in place at this time. The procedure began with a 6-inch incision over the lateral aspect of the distal femur. Subcutaneous tissue was dissected with Bovie. Iliotibial band was split in line with fibers. At this point the fracture was visualized. Traction was applied. The fracture site was severely comminuted. At this point attention was turned to irrigation debridement of open fracture. Curettes and rongeurs were used to debride soft tissue and bone. Multiple small bone fragments were excised. Overall the muscle tissue appeared to be healthy. The wound was now irrigated with 3 L of sterile saline. Next attention was turned to open reduction total fixation of the fracture. Traction was applied. A temporary external fixator was placed to help hold reduction. Attention was turned towards the articular surface. The medial and lateral condyle fragments were identified. Fracture was manipulated. The articular surface reduced very well. K wires result provisional fixation. The metaphyseal fragments were now manipulated and reduced. The fracture reduced into excellent alignment. Steinmann pins were used to hold provisional fixation. At this point attention was turned to plate placement. A lateral condylar plate was selected and attached to the insertion handle jig. The plate was placed underneath the vastus lateralis. Steinmann pins were used to hold the plate to bone. Multiplanar fluoroscopy confirmed appropriate placement of plate. Multiple 4.5 cortical screws were now placed in percutaneous fashion through the plate. The plate was compressed to bone or large phoebe-articular clamp. Multiple locking screws were now placed in the distal segment of the distal femur. Additional screws were placed into the femoral shaft. All screws were predrilled and premeasured for appropriate length. Final fluoroscopy revealed excellent alignment of fracture with well-placed hardware. Wound was thoroughly irrigated. Patient did have a sizable defect of the metaphyseal region. 10 cc of stimulan bone cement was mixed with 1 g of vancomycin and 1.2 g tobramycin. Cement was made into medium beads. Once the beads were set the antibiotic beads were packed into the metaphyseal region. Fascia was closed with #1 Vicryl. Subcutaneous tissue was closed with 3-0 Vicryl. Skin was closed with toña. Sterile dressings were applied. The patient was placed into a knee immobilizer and transferred to recovery in stable condition. Needle and sponge counts were correct. Bari Fox MD Mar 18, 2017 12:32
[2017-03-18] MEDS: CALCIUM/VITAMIN D 250 MG/125 U TAB PO SCH ×2 (13:00→18:00)
[2017-03-18] MEDS ORDERED: *morphine SULFATE 8 MG/ML PERIprocedure ONLY ONE ×3 (13:04→13:53)
[2017-03-18] MEDS ORDERED: *MEPERIDINE 25 MG INJ VIAL PERIprocedural Use ONLY ONE (13:10)
[2017-03-18] MEDS: LACTATED RINGER'S 1000 ML INJ 1,000 ML IV SCH (14:00)
[2017-03-18] MEDS ORDERED: ERGOCALCIFEROL (VIT D2) 50,000 UNIT CAP PO SCH (15:00)
[2017-03-18] MEDS: ACETAMINOPHEN/HYDROcodone 325 MG/10 MG TAB PO PRN ×2 (15:37→21:26)
--- NOTE | 2017-03-18 15:49 | RADRPT ---
EXAM DATE/TIME: 03/18/2017 12:08 [facility] COMPARISON: FEMUR RIGHT (AP & LAT/2VWS), March 14, 2017, 19:58. INDICATIONS : ORIF right femur fracture. MEDICAL HISTORY : Unobtainable. SURGICAL HISTORY : Unobtainable. ENCOUNTER: Subsequent ACUITY: 4 - 6 days PAIN SCORE: Non-responsive. LOCATION: Right femur FINDINGS: 7 images are recorded digitally in the operating room using C-arm during internal fixation of comminu alex fracture of the distal tibia. Lateral plate, multiple screws, and bone graft are present. CONCLUSION: Intraoperative images. Tylor Martinez MD on March 18, 2017 at 15:47 Board Certified Radiologist. This report was verified electronically.
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
[2017-03-18] MEDS: ONDANSETRON HCL 4 MG/2 ML VIAL IVP PRN (19:08)
[2017-03-18] MEDS ORDERED: BISACODYL 10 MG SUPP RECTAL ONE (21:00)
[2017-03-18] MEDS ORDERED: SODIUM CHLORIDE 0.9% FLUSH 5 ML FLUSH IVF SCH (21:00)
[2017-03-18] MEDS ORDERED: BISACODYL EC 5 MG TABEC PO ONE (21:00)
[2017-03-19 00:25] VITALS: BP 110/57; PULSE 102; RESP 16; TEMP 98.1; O2SAT 95
[2017-03-19] MEDS: ceFAZolin 2 GM PREMIX 50 ML IV SCH ×3 (00:41→17:43)
[2017-03-19] MEDS: GENTAMICIN 80 MG PREMIX 100 ML IV SCH ×3 (01:32→17:44)
[2017-03-19] MEDS: KETOROLAC TROMETHAMINE 30 MG/ML (IVP) VIAL IV PUSH SCH ×4 (01:34→20:31)
[2017-03-19] MEDS: LACTATED RINGER'S 1000 ML INJ 1,000 ML IV SCH ×2 (02:30→08:32)
[2017-03-19] MEDS: ACETAMINOPHEN/HYDROcodone 325 MG/10 MG TAB PO PRN ×5 (04:39→22:24)
[2017-03-19 04:50] VITALS: BP 134/80; PULSE 78; RESP 16; TEMP 98; O2SAT 99
[2017-03-19] MEDS: LEVOTHYROXINE SODIUM 112 MCG TAB PO SCH (05:43)
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
[2017-03-19] MEDS ORDERED: WHEEMIS3 (06:45)
--- NOTE | 2017-03-19 06:46 | HHI.FF ---
Face to Face Verification Diagnosis: (1) Open femur fracture, right (2) Closed right ankle fracture (3) Closed right hand fracture Physical Therapy Gait training, Wheelchair training Knee: Knee fracture, Protocol: Right, Non weight bearing Canvas Knee Splint: Remove only with PT Right LE Weight Bearing: Non WB, No Strengthening, No Quad Sets Right LE Range of Motion: Passive ROM (0-90deg) Occupational Therapy Right UE Weight Bearing: May use Platform Walker Nursing Dressing Changes: Daily dressing change, Sebas wrap, Gauze, Xeroform I have seen patient Shell Robles on 03/19/17. My clinical findings support the need for the requested home health care services because: Ltd mobility - disease progression I certify that my clinical findings support that this patient is homebound because: Post-op weakness Gaetano Mattson Mar 19, 2017 06:46
[2017-03-19] MEDS ORDERED: MAGNESIUM CITRATE SOLN 300 ML BTL PO ONE (07:15)
[2017-03-19 07:56] LABS: HEMATOCRIT 26.4 % (35.0-46.0); REVIEW FLAG FINAL
[2017-03-19 08:00] VITALS: BP 141/71; PULSE 85; RESP 18; TEMP 98.5; O2SAT 97
[2017-03-19] MEDS: CALCIUM/VITAMIN D 250 MG/125 U TAB PO SCH ×3 (08:30→17:44)
[2017-03-19] MEDS: FAMOTIDINE 20 MG TAB PO SCH ×2 (08:30→20:32)
[2017-03-19] MEDS: DOCUSATE SODIUM 50 MG/SENNA 8.6 MG TAB PO SCH ×2 (08:30→20:32)
[2017-03-19] MEDS: CHOLECALCIFEROL (VIT D3) 1000 UNIT TAB PO SCH (08:30)
[2017-03-19] MEDS: MULTIVITAMINS/MINERALS THERAPEUTIC TAB PO SCH (08:30)
[2017-03-19] MEDS: SODIUM CHLORIDE 0.9% FLUSH 10 ML FLUSH IV FLUSH SCH ×2 (08:32→20:32)
[2017-03-19] MEDS: POLYETHYLENE GLYCOL 17 GM PKG PO SCH (08:32)
[2017-03-19] MEDS: BACITRACIN TOP OINT 15 GM TUBE TOPICAL SCH ×2 (08:32→20:34)
[2017-03-19 12:00] VITALS: BP 146/89; PULSE 78; RESP 18; TEMP 97.6; O2SAT 100
[2017-03-19] MEDS: ENOXAPARIN SODIUM 30 MG/0.3 ML SYRINGE SQ SCH (13:00)
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
[2017-03-19 16:00] VITALS: BP 127/81; PULSE 94; RESP 18; TEMP 98.1; O2SAT 96
[2017-03-19] MEDS: SILVER SULFADIAZINE 1% CR 50 GM JAR TOP SCH (17:38)
[2017-03-19 20:05] VITALS: BP_SYST 118; BP_SYST 129; BP_DIAS 63; BP_DIAS 73; PULSE 113; PULSE 78; RESP 18; TEMP 98.4; O2SAT 97
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
[2017-03-19] MEDS ORDERED: GNP8.6TA PO (21:20)
[2017-03-19] MEDS ORDERED: MAGN400S PO (21:20)
[2017-03-20] VITALS (8 sets, daily range): BP systolic 112–149; BP diastolic 68–88; PULSE 76–99; RESP 18–22; TEMP 97.7–99.1; O2SAT 97–100
[2017-03-20] MEDS: ceFAZolin 2 GM PREMIX 50 ML IV SCH ×2 (00:32→08:50)
[2017-03-20] MEDS: ENOXAPARIN SODIUM 30 MG/0.3 ML SYRINGE SQ SCH ×2 (00:32→12:17)
[2017-03-20] MEDS: GENTAMICIN 80 MG PREMIX 100 ML IV SCH ×2 (00:33→08:50)
[2017-03-20] MEDS: KETOROLAC TROMETHAMINE 30 MG/ML (IVP) VIAL IV PUSH SCH ×4 (02:28→21:23)
[2017-03-20] MEDS: LACTATED RINGER'S 1000 ML INJ 1,000 ML IV SCH ×2 (02:30→16:00)
[2017-03-20] MEDS: LEVOTHYROXINE SODIUM 112 MCG TAB PO SCH (06:00)
[2017-03-20] MEDS: ACETAMINOPHEN/HYDROcodone 325 MG/10 MG TAB PO PRN ×3 (06:02→21:25)
--- NOTE | 2017-03-20 06:51 | PD.ORT.PN ---
Subjective Subjective Remarks Resting comfortably in bed Objective Vitals Vital Signs Date Time Temp Pulse Resp B/P (MAP) Pulse Ox O2 Delivery O2 Flow Rate FiO2 03/20/17 00:47 98.0 76 18 120/75 (90) 97 03/19/17 21:10 97 Room Air 03/19/17 20:05 98.4 78 18 129/73 (91) 97 03/19/17 16:00 98.1 94 18 127/81 (96) 96 03/19/17 12:00 97.6 78 18 146/89 (108) 100 03/19/17 08:00 98.5 85 18 141/71 (94) 97 I/O 03/19/17 03/19/17 03/19/17 03/20/17 03/20/17 03/20/17 07:00 15:00 23:00 07:00 15:00 23:00 Intake Total 630 ml 720 ml 510 ml 886 ml Balance 630 ml 720 ml 510 ml 886 ml Intake Oral 480 ml 720 ml 360 ml IV Total 150 ml 150 ml 886 ml # Voids 3 2 1 # Bowel Movements 0 1 1 Result Diagram: 03/19/17 0644 03/18/17 0834 Imaging Last 48 hours Impressions Pelvis X-Ray 03/14/171629 Signed Impressions: Service Date/Time: Tuesday, March 14, 2017 16:20 - CONCLUSION: No bony fracture or joint dislocation. Fredrick Wall MD Head CT 03/14/171629 Signed Impressions: Service Date/Time: Tuesday, March 14, 2017 16:40 - CONCLUSION: Normal examination for a patient of this age. Fredrick Wall MD Chest X-Ray 03/14/171629 Signed Impressions: Service Date/Time: Tuesday, March 14, 2017 16:20 - CONCLUSION: No acute disease. Fredrick Wall MD Chest CT 03/14/171629 Signed Impressions: Service Date/Time: Tuesday, March 14, 2017 16:53 - CONCLUSION: Normal examination for a patient of this age. Fredrick Wall MD Cervical Spine CT 03/14/171629 Signed Impressions: Service Date/Time: Tuesday, March 14, 2017 16:42 - CONCLUSION: 1. No acute bony fracture. 2. Primary bony degenerative changes, disc degeneration and disc space narrowing from C3-C7. Fredrick Wall MD Abdomen/Pelvis CT 03/14/17 1630 Signed Impressions: Service Date/Time: Tuesday, March 14, 2017 16:49 - CONCLUSION: No acute pathology. Fredrick Wall MD Tibia/Fibula X-Ray 03/14/17 0000 Signed Impressions: Service Date/Time: Tuesday, March 14, 2017 16:20 - CONCLUSION: Fracture involving the base the fifth metatarsal. Fredrick Wall MD Radius/Ulna X-Ray 03/14/17 0000 Signed Impressions: Service Date/Time: Tuesday, March 14, 2017 16:20 - CONCLUSION: Fracture involving the base of the fifth metacarpal. Fredrick Wall MD Hand X-Ray 03/14/17 0000 Signed Impressions: Service Date/Time: Tuesday, March 14, 2017 17:30 - CONCLUSION: Oblique fracture through the base of the fifth metacarpal. Fredrick Wall MD Hand X-Ray 03/14/17 0000 Signed Impressions: Service Date/Time: Tuesday, March 14, 2017 16:20 - CONCLUSION: Oblique fracture through the base of the fifth metacarpal. Fredrick Wall MD Foot X-Ray 03/14/17 0000 Signed Impressions: Service Date/Time: Tuesday, March 14, 2017 21:33 - CONCLUSION: Fracture non-distracted and nondisplaced base of the fifth metatarsal Michael Gunn MD Femur X-Ray 03/14/17 0000 Signed Impressions: Service Date/Time: Tuesday, March 14, 2017 19:58 - CONCLUSION: Status post fixation. Rudi Sood MD Femur X-Ray 03/14/17 0000 Signed Impressions: Service Date/Time: Tuesday, March 14, 2017 16:20 - CONCLUSION: Severely comminuted fracture involving the distal femur. Fredrick Wall MD Ankle X-Ray 03/14/17 0000 Signed Impressions: Service Date/Time: Tuesday, March 14, 2017 16:20 - CONCLUSION: 1. Fractures involving the lateral medial malleoli. 2. Possible fracture involving the medial aspect of the talus 3. Fracture involving the base of the metatarsal 4. Diffuse soft tissue swelling Fredrick Wall MD Last 24 hours Impressions Pelvis X-Ray 03/14/17 1630 Signed Impressions: Service Date/Time: Tuesday, March 14, 2017 16:20 - CONCLUSION: No bony fracture or joint dislocation. Fredrick Wall MD Head CT 03/14/170 Signed Impressions: Service Date/Time: Tuesday, March 14, 2017 16:40 - CONCLUSION: Normal examination for a patient of this age. Fredrick Wall MD Chest X-Ray 03/14/171629 Signed Impressions: Service Date/Time: Tuesday, March 14, 2017 16:20 - CONCLUSION: No acute disease. Fredrick Wall MD Chest CT 03/14/17 163 Signed Impressions: Service Date/Time: Tuesday, March 14, 2017 16:53 - CONCLUSION: Normal examination for a patient of this age. Fredrick Wall MD Cervical Spine CT 03/14/171629 Signed Impressions: Service Date/Time: Tuesday, March 14, 2017 16:42 - CONCLUSION: 1. No acute bony fracture. 2. Primary bony degenerative changes, disc degeneration and disc space narrowing from C3-C7. Fredrick Wall MD Abdomen/Pelvis CT 03/14/171629 Signed Impressions: Service Date/Time: Tuesday, March 14, 2017 16:49 - CONCLUSION: No acute pathology. Fredrick Wall MD Procedures 1. Irrigation debridement with external fixation open right supracondylar distal femur fracture 03/14/17 2. Irrigation debridement with partial closure right forearm laceration Objective Remarks RLE: +CKS. dressings clean and dry. intact. NVI Assessment & Plan Problem List: (1) Open displaced supracondylar fracture with intracondylar extension of lower end of left femur, type III ICD Codes: S72.462C - Displaced supracondylar fracture with intracondylar extension of lower end of left femur, initial encounter for open fracture type IIIA, IIIB, or IIIC Status: Acute Qualifiers: Qualified Codes: S72.462C - Displaced supracondylar fracture with intracondylar extension of lower end of left femur, initial encounter for open fracture type IIIA, IIIB, or IIIC (2) Nondisp fracture of fifth right metatarsal bone with routine healing ICD Codes: S92.354D - Nondisp fracture of fifth right metatarsal bone with routine healing Status: Acute Qualifiers: Qualified Codes: S92.354D - Nondisplaced fracture of fifth metatarsal bone, right foot, subsequent encounter for fracture with routine healing Plan: Splint immobilization (3) Fracture of fifth metacarpal bone of right hand ICD Codes: S62.306A - Unspecified fracture of fifth metacarpal bone, right hand , initial encounter for closed fracture Status: Acute Qualifiers: Qualified Codes: S62.306A - Unspecified fracture of fifth metacarpal bone, right hand, initial encounter for closed fracture Plan: Hand surgery has been consulted and therefore will defer. (4) Bimalleolar fracture of right ankle ICD Codes: S82.841A - Displaced bimalleolar fracture of right lower leg, initial encounter for closed fracture Status: Acute Qualifiers: Plan: Splint immobilization (5) Open wound of forearm ICD Codes: S51.809A - Unspecified open wound of unspecified forearm, initial encounter Status: Acute Qualifiers: Plan: Plastic surgery will be consulted per Dr. Melton and therefore will defer Assessment and Plan 1) Right Open Distal Femur Fx s/p ORIF - POD 2 -NWB -daily dressing changes -PROM 0-90 -no active leg lifts or quad sets -CKS straps 2) Right Ankle/foot fxs - Nonop -NWB -Fracture boot Lovenox Discharge to home tomorrow Follow-up Dr. Fox or [facility] in 2 weeks Continue daily dressing changes to arm with bacitracin Rudi Roy Jr. Mar 20, 2017 06:51
[2017-03-20] MEDS: MULTIVITAMINS/MINERALS THERAPEUTIC TAB PO SCH (08:50)
[2017-03-20] MEDS: DOCUSATE SODIUM 50 MG/SENNA 8.6 MG TAB PO SCH ×2 (08:50→21:24)
[2017-03-20] MEDS: CALCIUM/VITAMIN D 250 MG/125 U TAB PO SCH ×3 (08:50→17:17)
[2017-03-20] MEDS: FAMOTIDINE 20 MG TAB PO SCH ×2 (08:51→21:24)
[2017-03-20] MEDS: CHOLECALCIFEROL (VIT D3) 1000 UNIT TAB PO SCH (08:51)
[2017-03-20] MEDS: SODIUM CHLORIDE 0.9% FLUSH 10 ML FLUSH IV FLUSH SCH ×2 (08:51→21:24)
[2017-03-20] MEDS: SILVER SULFADIAZINE 1% CR 50 GM JAR TOP SCH (08:52)
[2017-03-20] MEDS: BACITRACIN TOP OINT 15 GM TUBE TOPICAL SCH ×2 (09:00→21:00)
[2017-03-20] MEDS: POLYETHYLENE GLYCOL 17 GM PKG PO SCH (09:00)
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
[2017-03-21] MEDS: ENOXAPARIN SODIUM 30 MG/0.3 ML SYRINGE SQ SCH ×2 (00:16→11:28)
[2017-03-21] MEDS: ACETAMINOPHEN/HYDROcodone 325 MG/10 MG TAB PO PRN ×3 (03:51→16:20)
[2017-03-21] MEDS: KETOROLAC TROMETHAMINE 30 MG/ML (IVP) VIAL IV PUSH SCH (03:53)
[2017-03-21] MEDS: LACTATED RINGER'S 1000 ML INJ 1,000 ML IV SCH (04:30)
[2017-03-21] MEDS: LEVOTHYROXINE SODIUM 112 MCG TAB PO SCH (06:29)
[2017-03-21 07:40] VITALS: BP 117/66; PULSE 74; RESP 18; TEMP 98.1; O2SAT 98
[2017-03-21] MEDS: CALCIUM/VITAMIN D 250 MG/125 U TAB PO SCH ×2 (07:55→11:28)
[2017-03-21] MEDS: DOCUSATE SODIUM 50 MG/SENNA 8.6 MG TAB PO SCH (07:55)
[2017-03-21] MEDS: CHOLECALCIFEROL (VIT D3) 1000 UNIT TAB PO SCH (07:55)
[2017-03-21] MEDS: MULTIVITAMINS/MINERALS THERAPEUTIC TAB PO SCH (07:55)
[2017-03-21] MEDS: FAMOTIDINE 20 MG TAB PO SCH (07:55)
[2017-03-21] MEDS: SILVER SULFADIAZINE 1% CR 50 GM JAR TOP SCH (09:00)
[2017-03-21] MEDS: BACITRACIN TOP OINT 15 GM TUBE TOPICAL SCH (09:00)
[2017-03-21] MEDS: POLYETHYLENE GLYCOL 17 GM PKG PO SCH (09:00)
[2017-03-21] MEDS: SODIUM CHLORIDE 0.9% FLUSH 10 ML FLUSH IV FLUSH SCH (09:00)
[2017-03-21 11:44] VITALS: BP 121/68; PULSE 89; RESP 18; TEMP 98.7; O2SAT 100
[2017-03-21] MEDS ORDERED: SSD1CRE TOP (12:58)
--- NOTE | 2017-03-21 15:32 | HHI.PR ---
Subjective Remarks right hand fracture follow up complaint with splint denies any pain denies any tingling or sensation Objective Vital Signs Date Time Temp Pulse Resp B/P (MAP) Pulse Ox O2 Delivery O2 Flow Rate FiO2 03/21/17 11:44 98.7 89 18 121/68 (85) 100 03/21/17 10:42 18 03/21/17 07:40 98.1 74 18 117/66 (83) 98 03/20/17 23:10 98.1 79 18 135/68 (90) 99 03/20/17 20:10 97.7 98 22 142/73 (96) 98 03/20/17 20:08 97.7 98 18 142/73 (96) 98 03/20/17 20:00 99 Room Air 03/20/17 16:20 97.9 99 20 149/84 (105) 100 I/O 03/20/17 03/20/17 03/20/17 03/21/17 03/21/17 03/21/17 07:00 15:00 23:00 07:00 15:00 23:00 Intake Total 1126 ml 150 ml 480 ml 480 ml 720 ml Balance 1126 ml 150 ml 480 ml 480 ml 720 ml Intake Oral 240 ml 480 ml 480 ml 720 ml IV Total 886 ml 150 ml # Voids 4 3 3 4 # Bowel Movements 3 0 0 1 right hand: splint in place intact sensation able to move her fingers Result Diagram: 03/19/17 0644 03/18/17 0834 Assessment and Plan Assessment and Plan 56 year old female with fifth metacarpal shaft/base fracture one week Plan: continue with ulnar gutter splint non weight bearing with the right hand follow up in office in 2 weeks time. Lew Ghosh MD Mar 21, 2017 15:31
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
== END 2017-03-21 16:36 | disposition home health service (06) | DRG 482 ==
LOC: NEPI 16:28 → NEDA 17:40 → EDBD 17:40 → N06A 22:01
PROVIDERS: ADMIT Surgery; ATTEND Surgery
PROC: 0HQ1XZZ Repair Face Skin, External Approach (ICD-10-PCS; 2017-03-14)
PROC: 0HQDXZZ Repair Right Lower Arm Skin, External Approach (ICD-10-PCS; 2017-03-14)
PROC: 0QSB35Z Reposition Right Lower Femur with External Fixation Device, Percutaneous Approach (ICD-10-PCS; principal; 2017-03-14 18:41)
PROC: 0QP Lower Bones, Removal (ICD-10-PCS; 2017-03-18)
PROC: 0QSB04Z Reposition Right Lower Femur with Internal Fixation Device, Open Approach (ICD-10-PCS; 2017-03-18)
PROC: 0QUB0JZ Supplement Right Lower Femur with Synthetic Substitute, Open Approach (ICD-10-PCS; 2017-03-18)
PROC: 30233N1 Transfusion of Nonautologous Red Blood Cells into Peripheral Vein, Percutaneous Approach (ICD-10-PCS; 2017-03-18)
DX: S72.461B Displaced supracondylar fracture with intracondylar extension of lower end of right femur, initial encounter for open fracture type I or II (principal); S06.0X0A Concussion without loss of consciousness, initial encounter; E03.9 Hypothyroidism, unspecified; S62.316A Displaced fracture of base of fifth metacarpal bone, right hand, initial encounter for closed fracture; S01.81XA Laceration without foreign body of other part of head, initial encounter; S92.351A Displaced fracture of fifth metatarsal bone, right foot, initial encounter for closed fracture; V29.9XXA Motorcycle rider (driver) (passenger) injured in unspecified traffic accident, initial encounter; S51.811A Laceration without foreign body of right forearm, initial encounter; M19.90 Unspecified osteoarthritis, unspecified site
CPT/HCPCS: 12011; 29505; 36415; 36430; 70450; 71010; 71250; 72125; 72170; 73130; 73551; 73552; 73600; 73630; 73700; 74176; 76000; 80048; 80053; 82435; 82565; 82652; 82947; 84132; 84295; 84520; 85014; 85018; 85025; 85610; 85730; 86850; 86900; 86901; 86920; 90471; 90715; 93005; 94150; 96365; 96375; 99291; C1713; C9113; G0390; J0131; J0330; J0690; J1100; J1200; J1580; J1650; J1885; J2175; J2270; J2405; J2710; J2930; J3010; J3370; J7030; J7120; L1830; L2114; L8699; P9016